=== PATIENT | female | born 1980 | race Caucasian/White ===

== ENCOUNTER → 2018-04-30 | Outpatient (CLI) | payer OTHER ==
[~2018-04-30] MED LIST: ASACOL400 MG; B-100 COMPLEX1 EAC1 PO; IBUPROFEN 600600 M1 PO; KEPPRA 500 MG500 MG; NORCO 5-325 TA1 EACH PO; PENTASA 250 MG250 MG; PREDNISONE50 MG PO; PROMETHAZINE12.5 M1 PO; RANITIDINE; RECLIPSEN1 EACH PO; TOMAZAPAM; TOPAMAX50 MG; TRAMADOL 50 MG50 MG PO; VITAMIN D1000 UNI1 PO; WOMEN'S MULTI1 EACH; ZOFRAN 4 MG ORAL4 M1 DIS; ZOLOFT 50 MG TA50 MG PO; ZOMIG ZMT2.5 MG PO
== END ==
LOC: M.RAD 10:19
DX: N63.10 Unspecified lump in the right breast, unspecified quadrant (principal); N63.20 Unspecified lump in the left breast, unspecified quadrant; R92.2 Inconclusive mammogram

== ENCOUNTER → 2019-11-17 | Outpatient (CLI) | payer OTHER | LOC: M.RAD 10:26 | DX: N63.20 Unspecified lump in the left breast, unspecified quadrant (principal); R92.2 Inconclusive mammogram ==

== ENCOUNTER → 2021-02-03 | Outpatient (CLI) | payer OTHER | LOC: M.RAD 11-17 12:20 | PROVIDERS: ATTEND Family Medicine | DX: N60.01 Solitary cyst of right breast (principal); N60.02 Solitary cyst of left breast; N63.20 Unspecified lump in the left breast, unspecified quadrant; R92.2 Inconclusive mammogram ==

== ENCOUNTER → 2021-08-23 | Outpatient (CLI) | payer OTHER | LOC: M.RAD 10:27 | PROVIDERS: ATTEND Family Medicine | DX: N60.02 Solitary cyst of left breast (principal); N63.22 Unspecified lump in the left breast, upper inner quadrant; N64.89 Other specified disorders of breast ==